=== PATIENT | male | born 1990 | race Caucasian/White ===

== ENCOUNTER 2020-02-04 11:42 | Emergency (ER) | payer OTHER ==
[~2020-02-04] VITALS: Ht 170.2 cm; Wt 68.0 kg
== END 2020-02-04 15:30 | disposition home or self-care (01) ==
LOC: ER 11:42
DX: S62.327A Displaced fracture of shaft of fifth metacarpal bone, left hand, initial encounter for closed fracture (principal); W19.XXXA Unspecified fall, initial encounter
CPT/HCPCS: 29125; 73130; 99283-25